=== PATIENT | male | born 1985 | race African-American/Black ===

== ENCOUNTER 2017-05-02 14:27 | Emergency (ER) | payer SELFPAY ==
[2017-05-02 14:33] VITALS: BP 150/98; TEMP 98.8; BMI 33.2
--- NOTE | 2017-05-02 14:42 | PDOC ---
History of Present Illness - General History Source: Patient Exam Limitations: No Limitations - History of Present Illness Initial Comments: 05/02/17 15:19 Patient is a 32 year old male with a significant past medical history of Bronchitis, HTN, Gastritis who presents to the ED with complaints of chest pain that began 3 days ago. Patient reports waking up Friday experiencing sudden onset of chest pain that he states is a pressured, achy pain. He reports chest pain is rated as an intermittent 6/10 chest pain that he states occasionally radiates towards his back. Patient states he thinks he is just very congested due to his bronchitis. He reports taking claritin and mucinex for congestion with no relief. Patient states he is worried that he might have contracted pneumonia. Denies SOB, fevers, chills. Denies nausea, vomiting. Denies contact with sick individuals. Denies diaphoresis, change in physical strain. Denies loss of appetite. Denies any other symptoms. Allergies: None Social history: No smoking. No alcohol. No illicit drugs. Surgical history: None PMD: None <Freddie Lee - Last Filed: 05/02/17 15:22> <Ezequiel Natarajan - Last Filed: 05/02/17 16:58> - General Chief Complaint: Chest Pain Stated Complaint: CHEST PAIN Time Seen by Provider: 05/02/17 14:40 Past History <Freddie Lee - Last Filed: 05/02/17 15:22> - Past Medical History Asthma: Yes COPD: No - Suicide/Smoking/Psychosocial Hx Smoking History: Never smoked Hx Alcohol Use: Yes (socially) Drug/Substance Use Hx: No Substance Use Type: None <Ezequiel Natarajan - Last Filed: 05/02/17 16:58> - Past Medical History Allergies/Adverse Reactions: Allergies Allergy/AdvReac Type Severity Reaction Status Date / Time No Known Allergies Allergy Verified 05/02/17 14:33 Home Medications: Ambulatory Orders Albuterol Sulfate Inhaler - [Ventolin Hfa Inhaler -] 1 - 2 inh PO Q4H #1 inhaler 05/02/17 Albuterol Sulfate Inhaler - [Ventolin Hfa Inhaler -] 1 puff IH Q4H 7 Days inhaler 05/02/17 Azithromycin 250 mg PO DAILY 4 Days #4 tablet 05/02/17 Azithromycin 500 mg PO DAILY 1 Days #1 tablet 05/02/17 Review of Systems - Review of Systems Able to Perform ROS?: Yes Comments:: 05/02/17 15:19 ROS: A complete review of 10 out of 10 review of systems is taken and is negative apart from what is previously mentioned below and in the HPI. All Other Systems: Reviewed and Negative <Freddie Lee - Last Filed: 05/02/17 15:22> *Physical Exam - Vital Signs Last Vital Signs Temp Pulse Resp BP Pulse Ox 98.8 F 114 H 16 150/98 96 05/02/17 14:30 05/02/17 14:30 05/02/17 14:30 05/02/17 14:30 05/02/17 14:30 - Physical Exam Comments: 05/02/17 15:19 Vitals: Triage Vital signs reviewed General Appearance: no acute distress, well nourished well developed Head: Atraumatic Eyes: Pupils equal reactive round, extraocular movement intact Chest Wall: Nontender Cardiac: Regular rate and rhythm, no murmurs, no rubs, no gallops Lungs: +End expiratory wheeze with cough Good air movement bilaterally Skin: Warm and dry, no rashes or lesions, no rash, no petechiae Neuro: AOX3; Cranial Nerves 2-12 grossly intact, Strength intact to all extremities, Sensation intact to all extremities, gait normal Psych: Normal mood, normal affect <Freddie Lee - Last Filed: 05/02/17 15:22> - Vital Signs Last Vital Signs Temp Pulse Resp BP Pulse Ox 98.8 F 114 H 16 150/98 96 05/02/17 14:30 05/02/17 14:30 05/02/17 14:30 05/02/17 14:30 05/02/17 14:30 <Ezequiel Natarajan - Last Filed: 05/02/17 16:58> Heart Score/ECG Review - ECG Intrepretation Comment:: 05/02/17 15:22 EKG performed at 14:48:06 demonstrates rate of 95 bpm, Normal sinus rhythm, axis equal to left anterior fascicular block. no T wave inversions, no ST elevations Abnormal ECG. <Freddie Lee - Last Filed: 05/02/17 15:22> ED Treatment Course - Medications Given in the ED: ED Medications Discontinued Medications Generic Name Dose Route Start Last Admin Trade Name Chris PRN Reason Stop Dose Admin Albuterol/Ipratropium 1 amp 05/02/17 14:44 05/02/17 15:13 Duoneb - NEB 05/02/17 14:45 1 amp ONCE ONE Administration <Freddie Lee - Last Filed: 05/02/17 15:22> - LABORATORY CBC & Chemistry Diagram: 05/02/17 15:10 05/02/17 15:10 <Ezequiel Natarajan - Last Filed: 05/02/17 16:58> Medical Decision Making - Medical Decision Making 05/02/17 16:58 3 days history of intermittent chest tightness associated with cough and a feeling of chest congestion. No evidence of pneumonia on chest x-ray. Labs within normal limits. No evidence of ischemia on EKG. Patient's heart score 1 History examination most consistent with viral bronchitis. We'll discharge with Ventolin MDI and azithromycin. Patient follow-up with his doctor this week. Findings, the need for follow-up and strict return instructions discussed with patient. <Ezequiel Natarajan - Last Filed: 05/02/17 16:58> *DC/Admit/Observation/Transfer - Attestations Scribe Attestion: 05/02/17 15:19 Documentation prepared by Freddie Lee, acting as medical laboratory manager for Ezequiel Natarajan MD, MD/DO. <Freddie Lee - Last Filed: 05/02/17 15:22> <Ezequiel Natarajan - Last Filed: 05/02/17 16:58> Diagnosis at time of Disposition: Bronchitis - Patient Instructions Printed Discharge Instructions: DI for Acute Bronchitis Additional Instructions: Ventolin inhaler as prescribed, azithromycin as prescribed, drink plenty of fluids. Follow-up with doctor next week. Return to the emergency department for any severe worsening symptoms or for any concerns.
[2017-05-02] MEDS ORDERED: ALBUTEROL SO4 2.5/IPRATROPIUM 0.5 INH SOL 3 ML VIAL.NEB. NEB ONE ×2 (14:44→14:57)
[2017-05-02 16:23] LABS: BASOPHIL 0.8 % (0-2.0); MCHC 35.7 g/dl (32.0-35.9); MEAN CELL VOLUME 92.3 fl (80-96); MEAN PLT VOLUME 8.6 fl (7.5-11.1); PLATELET COUNT 294 K/MM3 (134-434); RDW 12.8 % (11.9-15.9); WHITE BLOOD COUNT 5.4 K/mm3 (4.0-10.8)
[2017-05-02 16:25] LABS: ALK PHOS 45 U/L (32-92); ANION GAP 10 (8-16); BILIRUBIN,TOTAL 0.6 mg/dl (0.2-1.0); CALCIUM 10.3 mg/dl (8.4-10.2); CO2 26 mmol/L (22-28); GLUCOSE,RANDOM 101 mg/dl (74-106); SGOT/AST 32 U/L (10-42); SGPT/ALT 54 U/L (10-40); TOT PROT 8.4 g/dl (6.4-8.3)
[2017-05-02 17:30] VITALS: PULSE 100
--- NOTE | 2017-05-04 17:38 | EKG ---
Test Reason : Blood Pressure : / mmHG Vent. Rate : 095 BPM Atrial Rate : 095 BPM P-R Int : 146 ms QRS Dur : 096 ms QT Int : 350 ms P-R-T Axes : 032 -53 005 degrees QTc Int : 439 ms NORMAL SINUS RHYTHM LEFT ANTERIOR FASCICULAR BLOCK NONSPECIFIC T WAVE ABNORMALITY ABNORMAL ECG NO PREVIOUS ECGS AVAILABLE Confirmed by DENNIS JIMENES MD ([id number]) on 05/04/2017 5:37:42 PM Referred By: RICHARD BRANCH Confirmed By:DENNIS JIMENES MD
== END 2017-05-02 17:12 | disposition home or self-care (01) ==
LOC: FER 14:27
PROC: 3E0F7GC Introduction of Other Therapeutic Substance into Respiratory Tract, Via Natural or Artificial Opening (ICD-10-PCS; principal; 2017-05-02)
DX: J40 Bronchitis, not specified as acute or chronic (principal)
CPT/HCPCS: 36415; 71010-TC; 80053; 84484; 85025; 93005; 99283-25

== ENCOUNTER 2017-12-21 15:25 | Emergency (ER) | payer SELFPAY ==
[2017-12-21 15:29] VITALS: BMI 32.5
[2017-12-21 15:31] VITALS: BP 127/78; PULSE 67; TEMP 98.7
--- NOTE | 2017-12-21 16:04 | PDOC ---
History of Present Illness - General Chief Complaint: Pain, Acute Stated Complaint: ABD/SCROTUM PAIN Time Seen by Provider: 12/21/17 15:27 - History of Present Illness Initial Comments: 12/21/17 15:46 32 year old male with a PMH of gastritis presents with 1 month h/o L scrotal pain. Intermittent, non-qualifiable, 02/25 no identifying triggering or reliving factors including no relation to movement, exertion or urination. Denies h/o trauma. Endorses dysuria, denies hematuria. Notes multiple sexual partners with condom use. No personal contact with sexual partners thus unaware of any STI exposure. Denies fevers/chills, abdominal cramping, nausea/ vomiting. Patient states he is anxious has has cancer as his mother and multiple members of his extended family has cancer. Patient denies chest pain, shortness of breath, cough, sore throat. Patient denies recent travel, sick contacts. NKDA Surgical: L achilles tendon repair Social: former smoker, denies alcohol, denies recreational drugs PMD: none, will refer to IM resident clinic Past History - Past Medical History Allergies/Adverse Reactions: Allergies Allergy/AdvReac Type Severity Reaction Status Date / Time No Known Allergies Allergy Verified 12/21/17 15:26 Home Medications: Ambulatory Orders NK [No Known Home Medication] 12/21/17 Asthma: Yes COPD: No Dementia: No - Suicide/Smoking/Psychosocial Hx Smoking History: Never smoked Hx Alcohol Use: No Drug/Substance Use Hx: No Substance Use Type: None Review of Systems - Review of Systems Constitutional: No: Chills, Fever HEENTM: No: Eye Pain, Blurred Vision Respiratory: No: Cough, Shortness of Breath Cardiac (ROS): No: Chest Pain, Lightheadedness, Palpitations, Syncope ABD/GI: No: Constipated, Diarrhea, Nausea, Vomiting, Abdominal cramping : Yes: Dysuria, Testicular Pain. No: Flank Pain, Hematuria Neurological: No: Numbness Endocrine: No: Change in Weight *Physical Exam - Vital Signs Last Vital Signs Temp Pulse Resp BP Pulse Ox 98.7 F 67 14 127/78 98 12/21/17 15:25 12/21/17 15:25 12/21/17 15:25 12/21/17 15:25 12/21/17 15:25 - Physical Exam General Appearance: Yes: Nourished, Appropriately Dressed Neck: positive: Trachea midline, Supple Respiratory/Chest: positive: Lungs Clear, Normal Breath Sounds Cardiovascular: positive: S1, S2. negative: JVD Gastrointestinal/Abdominal: positive: Normal Bowel Sounds, Soft. negative: Distended, Guarding, Rebound, Tenderness, Hernia, Mass Male Genitalia: negative: discharge, testicular tenderness, testicular mass, epididymus tender Lymphatic: negative: Adenopathy Musculoskeletal: negative: CVA Tenderness (R), CVA Tenderness (L) Extremity: positive: Normal Capillary Refill, Normal Inspection Integumentary: positive: Normal Color, Dry, Warm Neurologic: positive: Fully Oriented ED Treatment Course - LABORATORY CBC & Chemistry Diagram: 12/21/17 17:11 Medical Decision Making - Medical Decision Making 12/21/17 16:07 32 year old male presents with 1 month h/o intermittent scrotal pain, endorses dysuria and multiple sexual partners. Scrotal/Penile PE benign. Frontal diagnosis: UTI, cystitis, Gonorrhea/Chlamydia, less likely torsion, possibly epididymitis or orchitis. Will send G/C, Syphilis and UA/UC. Patient counseled extensively on importance of HIV testing and safe sexual practices. Patient declines HIV testing at this time. 12/21/17 17:25 Patient resting comfortably; Wet read of U/S shows no torsion, good vascular flow. Formal read pending. 12/21/17 18:18 U/S shows small L sided hydrocele, and R sided varicocele. No torsion/orchitis/ epidymitis. 12/21/17 18:49 Patient counseled on U/S findings states he doesn't have insurance however is in the process of applying for insurance through his employer. Due to concern that patient may not adhere to follow-up evaluation with urology, will obtain a CT abdomen to evaluate for any underlying malignancy. 12/21/17 19:03 Patient signed out to Dr. Hernandez (Attending). *DC/Admit/Observation/Transfer Diagnosis at time of Disposition: Testicular pain - Discharge Dispostion Condition at time of disposition: Stable Decision to Admit order: No - Referrals Referrals: Don Kwan MD [Staff Physician] - Gallo Jessica MD [Staff Physician] - - Patient Instructions Printed Discharge Instructions: DI for Testicular Pain Additional Instructions: Please call Dr. El-Masry, a urologist, for an appointment. A copy of your ultrasound has been provided to you. Please take this to your urology appointment. It is very important that you receive urological evaluation. Please call Dr. Aquiles Ochoa to establish primary care. Use condoms consistently for any sexual activity. Return to the Emergency Department for any new/worsening/continuing symptoms. - Post Discharge Activity
--- NOTE | 2017-12-21 16:43 | PDOC ---
Attending Attestation - Resident Resident Name: Marla Chávez - ED Attending Attestation I have performed the following: I have examined & evaluated the patient, The case was reviewed & discussed with the resident, I agree w/resident's findings & plan, Exceptions are as noted - HPI HPI: 12/21/17 16:37 32 year old male c/ hx of gastritis presents with penile discomfort x 1 month. The patient reports that he is sexually active with multiple women. Intermittently uses condoms. Denies dysuria, but does endorse bilateral constant scrotal pain. Endorses discomfort at the tip of the penis. No penile discharge. Reports some mild suprapubic discomfort. Has not seen a physician for this. Denies fevers, chills. The patient is requesting an STD test, but absolutely declines an HIV test ( despite discussion from me, the RN, and my resident). - Physicial Exam PE: 12/21/17 16:39 GENERAL: Awake, alert, and fully oriented, in no acute distress HEAD: No signs of trauma EYES: EOMI, sclera anicteric, conjunctiva clear ENT: Auricles normal inspection, hearing grossly normal, nares patent, Moist mucosa NECK: Normal ROM, supple ABDOMEN: Soft, mild suprapubic discomfort. No guarding, no rebound. No masses. : circumcised penis. No testicular tenderness to palpation bilaterally. Vertical lie. no discharged noted. no rashes, or lesions. EXTREMITIES: Normal range of motion, no edema. No clubbing or cyanosis. No cords, erythema, or tenderness NEUROLOGICAL: Cranial nerves II through XII grossly intact. Normal speech, normal gait SKIN: Warm, Dry, normal turgor, no rashes or lesions noted. - Medical Decision Making 12/21/17 16:40 Vital Signs Temp Pulse Resp BP Pulse Ox 98.7 F 67 14 127/78 98 12/21/17 15:25 12/21/17 15:25 12/21/17 15:25 12/21/17 15:25 12/21/17 15:25 Will check for STIs including GC/CT, RPR. Pt declines HIV. Scrotal ultrasound to r/o orchitis, epidydimitis. From a clinical perspective, this is highly unlikely to be testicular torsion. UA/UC to r/o cystitis. Reassess. 12/21/17 18:39 CBC, BMP 12/21/17 17:11 Urine Test Results Urine Color Yellow 12/21/17 17:11 Urine Appearance Clear 12/21/17 17:11 Urine pH 7.5 (4.5-8) 12/21/17 17:11 Ur Specific [place] 1.015 (1.005-1.025) 12/21/17 17:11 Urine Protein 1+ (NEGATIVE) H 12/21/17 17:11 Urine Glucose (UA) Negative (NEGATIVE) 12/21/17 17:11 Urine Ketones 1+ (NEGATIVE) H 12/21/17 17:11 Urine Blood Negative (NEGATIVE) 12/21/17 17:11 Urine Nitrite Negative (NEGATIVE) 12/21/17 17:11 Urine Bilirubin Negative (NEGATIVE) 12/21/17 17:11 Ur Leukocyte Esterase Negative (NEGATIVE) 12/21/17 17:11 Will treat empirically for GC CT with ceftriaxone and azithromycin. Ultrasound reviewed: Right sided varicoceles. However, left sided varicoceles is not visualized (as no test was done). GIven these findings, will treat with NSAIDS and symptomatically. However, given this potential R sided varicocele finding (and possibly isolated) and its rare occurrence. This will need further investigation by a urologist and likely a CT scan of the abdomen and pelvis. We will perform a CT and abdomen pelvis and reassess. Pt signed out to Dr. Hernandez for further management and disposition.
[2017-12-21 17:26] LABS: BASO % 1.1 % (0-2.0); EOS % 5.7 % (0-4.5); HEMATOCRIT 42.4 % (35.4-49); HEMOGLOBIN 14.6 GM/dl (11.7-16.9); LYMPH % 45.3 % (8-40); MCH 31.9 pg (25.7-33.7); MCHC 34.5 g/dl (32.0-35.9); MEAN CELL VOLUME 92.4 fl (80-96); MEAN PLT VOLUME 7.7 fl (7.5-11.1); MONO % 9.9 % (3.8-10.2); PLATELET COUNT 285 K/MM3 (134-434); RBC 4.59 M/mm3 (4.00-5.60); RDW 13.1 % (11.9-15.9)
[2017-12-21 18:24] LABS: PH,URINE 7.5 (4.5-8); URINE APPEARANCE Clear; URINE BILIRUBIN Negative (NEGATIVE); URINE COLOR Yellow; URINE GLUCOSE (UA) Negative (NEGATIVE); URINE KETONE 1+ (NEGATIVE); URINE LEUK ESTERASE Negative (NEGATIVE); URINE NITRITE Negative (NEGATIVE); URINE UROBILINOGEN 0.2 (0.2-1.0)
[2017-12-21 18:25] LABS: URINE PROTEIN 1+ (NEGATIVE)
[2017-12-21] MEDS ORDERED: AZITHROMYCIN 1 GM PACKET PO ONE (18:31)
[2017-12-21 18:45] LABS: AMORP URATES FEW /hpf (NONE SEEN); EPI CELLS FEW /HPF; URINE BACTERIA FEW /hpf (NEGATIVE); URINE RBC 0-2 /hpf (0-3); URINE WBC 0-2 (0-2)
[2017-12-21] MEDS ORDERED: AZITHROMYCIN 1 GM PACKET ONE (18:48)
--- NOTE | 2017-12-21 19:34 | PDOC ---
*Physical Exam - Vital Signs Last Vital Signs Temp Pulse Resp BP Pulse Ox 98.7 F 67 14 127/78 98 12/21/17 15:25 12/21/17 15:25 12/21/17 15:25 12/21/17 15:25 12/21/17 15:25 ED Treatment Course - LABORATORY CBC & Chemistry Diagram: 12/21/17 17:11 12/21/17 19:11 - ADDITIONAL ORDERS Additional order review: Laboratory Results 12/21/17 17:11 Urine Color Yellow Urine Appearance Clear Urine pH 7.5 Ur Specific [place] 1.015 Urine Protein 1+ H Urine Glucose (UA) Negative Urine Ketones 1+ H Urine Blood Negative Urine Nitrite Negative Urine Bilirubin Negative Urine Urobilinogen 0.2 Ur Leukocyte Esterase Negative Urine RBC 0-2 Urine WBC 0-2 Ur Epithelial Cells Few Amorphous Urates Few Urine Bacteria Few 12/21/17 17:11 RBC 4.59 MCV 92.4 MCHC 34.5 RDW 13.1 MPV 7.7 D Neutrophils % 38.0 L D Lymphocytes % 45.3 H D Monocytes % 9.9 Eosinophils % 5.7 H D Basophils % 1.1 - Medications Given in the ED: ED Medications Discontinued Medications Generic Name Dose Route Start Last Admin Trade Name Freq PRN Reason Stop Dose Admin Azithromycin 1 gm 12/21/17 18:31 12/21/17 18:54 Zithromax - PO 12/21/17 18:32 1 gm ONCE ONE Administration Ceftriaxone Sodium 250 mg 12/21/17 18:30 12/21/17 18:57 Rocephin - IM 12/21/17 18:31 250 mg ONCE ONE Administration Progress Note - Progress Note Progress Note: Care of this patient received from Dr. Albert. This 32-year-old man presents with scrotal pain and a history of frequent nonprotected intercourse. He has been treated empirically for STD with ceftriaxone/azithromycin (GC/Chlamydia amplification sent). Because of the presence of varicocele on the right side with no visualization on the left side , pelvic CT was performed. CT was negative without evidence of acute pathology. Results discussed with the patient. He will follow-up with urology, Dr. Daniel Boothe as well as Dr Ochoa for primary care medicine. *DC/Admit/Observation/Transfer Diagnosis at time of Disposition: Testicular pain - Discharge Dispostion Disposition: HOME Condition at time of disposition: Stable - Referrals Referrals: Don Kwan MD [Staff Physician] - Gallo Jessica MD [Staff Physician] - - Patient Instructions Printed Discharge Instructions: DI for Testicular Pain Additional Instructions: Please call Dr. Jessica, a urologist, for an appointment. A copy of your ultrasound has been provided to you. Please take this to your urology appointment. It is very important that you receive urological evaluation. Please call Dr. Aquiles Ochoa to establish primary care. Use condoms consistently for any sexual activity. Return to the Emergency Department for any new/worsening/continuing symptoms. - Post Discharge Activity
[2017-12-21 20:04] LABS: ALBUMIN 4.7 g/dl (3.5-5.0); ALK PHOS 38 U/L (32-92); ANION GAP 7 (8-16); BILIRUBIN,TOTAL 0.6 mg/dl (0.2-1.0); BLOOD UREA NITROGEN 21 mg/dl (7-18); CALCIUM 9.4 mg/dl (8.4-10.2); CHLORIDE 103 mmol/L (98-107); CO2 27 mmol/L (22-28); CREATININE 1.2 mg/dl (0.6-1.3); GLUCOSE,RANDOM 88 mg/dl (74-106); POTASSIUM 4.1 mmol/L (3.5-5.1); SGOT/AST 27 U/L (10-42); SGPT/ALT 42 U/L (10-40); SODIUM 137 mmol/L (136-145); TOT PROT 7.9 g/dl (6.4-8.3)
== END 2017-12-21 21:30 | disposition home or self-care (01) ==
LOC: FER 15:25
DX: N50.82 Scrotal pain (principal)
CPT/HCPCS: 36415; 74177-TC; 76870-TC; 80053; 81003; 81015; 85025; 86593; 87086; 87491; 87591; 99283-25

== ENCOUNTER 2018-10-30 13:15 | Emergency (ER) | payer OTHER | END 2018-10-30 16:13 | disposition home or self-care (01) | LOC: FER 13:15 ==

== ENCOUNTER 2018-11-13 06:33 | Emergency (ER) | payer OTHER ==
[2018-11-13 06:40] VITALS: BP 117/76; PULSE 60; TEMP 98; BMI 30.2
--- NOTE | 2018-11-13 06:51 | PDOC ---
History of Present Illness - General Chief Complaint: Ear Problem Stated Complaint: RT EAR PAIN Time Seen by Provider: 11/13/18 06:41 History Source: Patient Exam Limitations: No Limitations - History of Present Illness Initial Comments: 11/13/18 06:51 This is a 33-year-old male who comes in complaining of a perforated eardrum. Patient had Q tip given his ear and he accidentally perforated his eardrum. Patient said it is very painful and blood came out of his ear. Patient otherwise denies any other complaints. Patient is concerned because he thinks he may need antibiotics. She reports that he is able to hear out of that ear with minimal decrease in his hearing. Allergies: as per nursing notes Past Medical History: none Social history: Lives with family. No smoking. No alcohol. No illicit drugs. Surgical history: None General: No fevers or chills, no weakness, no weight loss HEENT: No change in vision. No sore throat,. + ear pain CardioVascular: no chest discomfort. No shortness of breath Respiratory:No cough, or wheezing. Gastrointestinal: no nausea, vomiting, diarrhea or constipation, No rectal bleeding Genitourinary: No dysuria, hematuria, or frequency Musculoskeletal: No joint or muscle pain or swelling Neurologic: No headache, vertigo, dizziness or loss of consciousness Psychiatric: nor depression Skin: No rashes or easy bruising Endocrine: no increased thirst or abnormal weight change Allergic: no skin or latex allergy All other systems reviewed and normal GENERAL: The patient is awake, alert, and fully oriented, in no acute distress. HEAD: Normal with no signs of trauma., Right ear: There is some blood in the external canal with a perforation of the tympanic membrane. EYES: Pupils equal, round and reactive to light, extraocular movements intact, sclera anicteric, conjunctiva clear. EXTREMITIES:atraumatic, Normal range of motion, no edema. NEUROLOGICAL: Normal speech, normal gait. PSYCH: Normal mood, normal affect. SKIN: Warm, Dry, normal turgor, no rashes or lesions noted. Chest and plan: This a 33-year-old male with a traumatic perforation of his right tympanic membrane. Patient referred to ENT for further evaluation and told to make sure there he eats his ear covered with an he takes a shower and does not get any water in the ear until it is able to heel and about 1-2 weeks Past History - Past Medical History Allergies/Adverse Reactions: Allergies Allergy/AdvReac Type Severity Reaction Status Date / Time No Known Allergies Allergy Verified 10/30/18 13:26 Home Medications: Ambulatory Orders Diphenhydramine HCl [Benadryl -] 25 mg PO Q6H PRN 11/13/18 Oxymetazoline HCl [Afrin] 1 spray NS PRN PRN 11/13/18 Asthma: Yes (ENVIRONMENTAL ALLERGIES) COPD: No Dementia: No - Suicide/Smoking/Psychosocial Hx Smoking History: Never smoked Hx Alcohol Use: No Drug/Substance Use Hx: No Substance Use Type: None *Physical Exam - Vital Signs Last Vital Signs Temp Pulse Resp BP Pulse Ox 98 F 60 16 117/76 98 11/13/18 06:35 11/13/18 06:35 11/13/18 06:35 11/13/18 06:35 11/13/18 06:35 *DC/Admit/Observation/Transfer Diagnosis at time of Disposition: Perforation of right tympanic membrane - Discharge Dispostion Disposition: HOME Condition at time of disposition: Stable Decision to Admit order: No - Referrals - Patient Instructions Additional Instructions: For the pain take ibuprofen or Aleve as directed on the bottle. Follow-up with an ENT if he needed an ENT T call Dr. Osman Return to the emergency department immediately with ANY new, persistent or worsening symptoms. Continue any medications as previously prescribed by your physician. You should follow up with your primary doctor as soon as possible regarding today's emergency department visit. . Please make sure your doctor reviews the results of your emergency evaluation. Thank you for coming to the Emergency Department today for your care. It was a pleasure to see you today. Please note that your evaluation is INCOMPLETE until you follow-up with your doctor. - Post Discharge Activity
== END 2018-11-13 07:01 | disposition home or self-care (01) ==
LOC: FER 06:33
DX: S09.21XA Traumatic rupture of right ear drum, initial encounter (principal); X58.XXXA Exposure to other specified factors, initial encounter; Y93.E8 Activity, other personal hygiene; Y92.89 Other specified places as the place of occurrence of the external cause
CPT/HCPCS: 99281-25

== ENCOUNTER 2019-05-15 09:38 | Emergency (ER) | payer SELFPAY ==
[2019-05-15 09:48] VITALS: BP 120/80; PULSE 68; TEMP 98.1; BMI 29.5
[2019-05-15] MEDS ORDERED: LORATADINE 10 MG TABLET PO ONE (09:51)
[2019-05-15] MEDS ORDERED: LORATADINE 10 MG TABLET ONE (09:53)
--- NOTE | 2019-05-15 09:58 | PDOC ---
History of Present Illness - General Chief Complaint: Respiratory Stated Complaint: cough 3 weeks Time Seen by Provider: 05/15/19 09:41 - History of Present Illness Initial Comments: 05/15/19 09:52 34yo male with no signif pmhx presents ambulatory from home for eval of cough x 2 weeks. Pt states cough is dry and he also complaints of congestion/ rhinorrhea. States all mucus has been clear. Denies productive cough. Denies sob. Denies f/c. No rash. States he tried mucinex and saline nasal spray. States he also has tried benadryl intermittently. Pt denies abd pain. No n/v/d. No sick contacts. Pt did not get a flu vaccine this year. Pt does not have a PMD or ENT. Pmhx: perforated ear drum (October 2018) Pshx: wisdom teeth, achilles tendon All: nkda Past History - Past Medical History Allergies/Adverse Reactions: Allergies Allergy/AdvReac Type Severity Reaction Status Date / Time No Known Allergies Allergy Verified 05/15/19 09:40 Home Medications: Ambulatory Orders Oxymetazoline HCl [Afrin] 1 spray NS PRN PRN 11/13/18 Fluticasone Prop 0.05% Nasal [Flonase -] 1 - 2 spray NS BID #1 spray.pump Guaifenesin [Mucinex] 600 mg PO PRN PRN 05/15/19 Asthma: Yes (ENVIRONMENTAL ALLERGIES) COPD: No Dementia: No - Psycho Social/Smoking Cessation Hx Smoking History: Unknown if ever smoked Have you smoked in the past 12 months: No Hx Alcohol Use: No Drug/Substance Use Hx: No Substance Use Type: None Review of Systems - Review of Systems Able to Perform ROS?: Yes Is the patient limited Chinese proficient: No Constitutional: No: Chills, Fever HEENTM: Yes: Nose Congestion. No: Eye Pain, Blurred Vision, Ear Pain, Ear Discharge, Nose Pain, Tinnitus, Nose Bleeding, Hearing Loss, Throat Pain, Throat Swelling Respiratory: Yes: Cough. No: Shortness of Breath Cardiac (ROS): No: Chest Pain, Irregular Heart Rate ABD/GI: No: Diarrhea, Nausea, Vomiting, Abdominal cramping : No: Burning Musculoskeletal: No: Back Pain, Neck Pain Neurological: No: Headache, Numbness, Paresthesia All Other Systems: Reviewed and Negative *Physical Exam - Vital Signs Last Vital Signs Temp Pulse Resp BP Pulse Ox 98.1 F 68 20 120/80 98 05/15/19 09:39 05/15/19 09:39 05/15/19 09:39 05/15/19 09:39 05/15/19 09:39 - Physical Exam General Appearance: Yes: Nourished, Appropriately Dressed. No: Apparent Distress HEENT: positive: EOMI, MARCIN, Normal Voice, Nasal Congestion, Other (post nasal gtt). negative: Pharyngeal Erythema, Tonsillar Exudate, Tonsillar Erythema, Rhinorrhea, Sinus Tenderness, TM Bulging, TM Dull, TM Erythema Neck: positive: Supple. negative: Tender Respiratory/Chest: positive: Lungs Clear, Normal Breath Sounds. negative: Respiratory Distress Cardiovascular: positive: Regular Rhythm, Regular Rate, S1, S2. negative: Edema Gastrointestinal/Abdominal: positive: Soft. negative: Guarding, Rebound, Tenderness Musculoskeletal: positive: Normal Inspection Extremity: positive: Normal Inspection, Normal Range of Motion. negative: Calf Tenderness Integumentary: positive: Normal Color, Dry, Warm. negative: Rash Neurologic: positive: trapper animal II-XII NML intact, Fully Oriented, Alert, Normal Mood/ Affect, Normal Response ED Treatment Course - RADIOLOGY Radiology Studies Ordered: Category Date Time Status CHEST PA & LAT [RAD] Stat Radiology 05/15/19 09:50 Ordered Medical Decision Making - Medical Decision Making 05/15/19 09:56 a/p: 34yo male with dry cough, rhinorrhea, nasal congestion -hx of allergies -signs/symptoms of URI vs allergic rhinitis -concern for PNA per patient, will send for cxr, though low suspicion given no fevers/chills/systemic symptoms and clear lungs -will start loratidine -pt is nontoxic in appearance 05/15/19 10:48 cxr clear 05/15/19 10:50 pt states feeling better discussed xray findings stable for dc to home and follow up with ENT as outpt Discharge - Discharge Information Problems reviewed: Yes Clinical Impression/Diagnosis: Nasal congestion Condition: Stable Disposition: HOME - Admission No - Additional Discharge Information Prescriptions: Fluticasone Prop 0.05% Nasal [Flonase -] 1 - 2 spray NS BID #1 spray.pump - Follow up/Referral Referrals: Don Kwan MD [Staff Physician] - Harrison Osman MD [Staff Physician] - - Patient Discharge Instructions Additional Instructions: Please make an appointment to see the primary care physician and the ENT. Please buy claritin and start taking it daily. Please also buy Deo Med Sinus Rinse kit and rinse your nose daily. Please return to the ED with any further concerns or complaints. After rinsing your nose you can use the flonase nasal spray. - Post Discharge Activity
== END 2019-05-15 11:12 | disposition home or self-care (01) ==
LOC: FER 09:38
CPT/HCPCS: 71046-TC-FY; 99282-25

== ENCOUNTER 2019-06-28 00:40 | Emergency (ER) | payer OTHER ==
[2019-06-28 00:46] VITALS: BP 138/92; PULSE 61; TEMP 97.5; BMI 28.6
--- NOTE | 2019-06-28 00:48 | PDOC ---
History of Present Illness - General Chief Complaint: Pain, Acute Stated Complaint: CONGESTION,PAIN IN SINUS Time Seen by Provider: 06/28/19 00:42 History Source: Patient Exam Limitations: No Limitations - History of Present Illness Initial Comments: 06/28/19 00:50 This is a 34-year-old male who comes in complaining of sinus congestion and difficulty sleeping this evening. Patient says he feels like he has pressure in his face behind his eyes. Patient said that he has had this problem intermittently times a number of years. Patient has been to an ENT and told he has allergic rhinitis. Patient did take some Tylenol prior to coming in and feels better. Patient denies any fevers or chills. Patient denies any color to his mucus. Allergies: as per nursing notes Past Medical History: none Social history: Lives with family. No smoking. No alcohol. No illicit drugs. Surgical history: None General: No fevers or chills, no weakness, no weight loss HEENT: No change in vision. No sore throat,. No ear pain, sinus congestion and pain CardioVascular: no chest discomfort. No shortness of breath Respiratory:No cough, or wheezing. Gastrointestinal: no nausea, vomiting, diarrhea or constipation, No rectal bleeding Genitourinary: No dysuria, hematuria, or frequency Musculoskeletal: No joint or muscle pain or swelling Neurologic: No headache, vertigo, dizziness or loss of consciousness Psychiatric: nor depression Skin: No rashes or easy bruising Endocrine: no increased thirst or abnormal weight change Allergic: no skin or latex allergy All other systems reviewed and normal Exam: General: Well-nourished well-developed individual, no acute distress HEENT: Throat: Normal, tonsils normal, no erythema or exudate, there is no tenderness on percussion of the sinuses. There is no nasal discharge. Neck: Supple, no meningeal signs, no lymphadenopathy Eyes::Pupils equal reactive and round, extraocular motion intact Chest: Nontender to palpation Cardiac: S1-S2 normal, regular rate and rhythm, no murmurs rubs or gallops Respiratory: Lungs clear to auscultation bilateral Abdomen: Soft, nondistended, normal bowel sounds, there is no tenderness on palpation diffusely Extremities: Warm, dry, no cyanosis, clubbing, or edema Skin: No rashes Neuro: Alert and oriented x3, CN II - XII intact, nonfocal exam with normal strength, normal sensation, normal reflexes, normal gait, Psych: Normal mood and affect Assessment and plan: This is a 34-year-old male who comes in complaining of difficulty sleeping secondary to discomfort and congestion. I recommended that patient get a humidifier and put it in his room. In addition to that I recommended that he take 2 Benadryl prior to going to bed and follow-up with an ENT. Past History - Past Medical History Allergies/Adverse Reactions: Allergies Allergy/AdvReac Type Severity Reaction Status Date / Time No Known Allergies Allergy Verified 05/15/19 09:40 Home Medications: Ambulatory Orders Guaifenesin [Mucinex] 600 mg PO PRN PRN 05/15/19 Asthma: Yes (ENVIRONMENTAL ALLERGIES) COPD: No Dementia: No - Psycho Social/Smoking Cessation Hx Smoking History: Unknown if ever smoked Have you smoked in the past 12 months: No Hx Alcohol Use: No Drug/Substance Use Hx: No Substance Use Type: None Discharge - Discharge Information Problems reviewed: Yes Clinical Impression/Diagnosis: Sinus congestion Condition: Stable Disposition: HOME - Admission No - Follow up/Referral - Patient Discharge Instructions Additional Instructions: Take 2 Tylenol prior to going to bed for congestion and difficulty sleeping. Follow-up with an ENT. Return to the emergency department immediately with ANY new, persistent or worsening symptoms. Continue any medications as previously prescribed by your physician. You should follow up with your primary doctor as soon as possible regarding today's emergency department visit. . Please make sure your doctor reviews the results of your emergency evaluation. Thank you for coming to the Emergency Department today for your care. It was a pleasure to see you today. Please note that your evaluation is INCOMPLETE until you follow-up with your doctor. - Post Discharge Activity
== END 2019-06-28 01:02 | disposition home or self-care (01) ==
LOC: FER 00:40
DX: R09.81 Nasal congestion (principal); J30.2 Other seasonal allergic rhinitis
CPT/HCPCS: 99282-25